=== PATIENT | female | born 1990 | race Caucasian/White ===

== ENCOUNTER 2025-03-09 12:45 | Emergency (ER) | payer OTHER, SELFPAY ==
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
[2025-03-09 13:28] VITALS: BP 108/75; PULSE 81; RESP 18; TEMP 36.5; O2SAT 99
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
[2025-03-09 14:27] LABS: Basophils Percent Auto 0.4 % (0.2-1.2); Eosinophils Absolute Auto 0.1 K/mm3 (0-0.3); Eosinophils Percent Auto 1.1 % (0-4.4); Hematocrit 39.2 % (37.0-47.0); Hemoglobin 12.9 g/dL (12.0-15.0); Immature Granulocyte Absolute 0.02 K/mm3 (0.00-0.031); Immature Granulocyte Percent A 0.2 % (0-0.5); Lymphocytes Absolute Auto 1.85 K/mm3 (0.9-3.2); Lymphocytes Percent Auto 21.7 % (18.3-44.2); Mean Corpuscular HGB Conc 32.9 g/dl (32-36); Mean Corpuscular Hemoglobin 29.9 pg (26-34); Mean Platelet Volume 11.7 fl (7.4-10.4); Monocytes Absolute Auto 0.5 K/mm3 (0.1-0.6); Neutrophils Percent Auto 70.6 % (45.5-73.1); Platelet Count Result 195 k/mm3 (150-375); Red Blood Count 4.31 M/mm3 (4.2-5.4); Red Cell Distribution Width 12.2 % (11.5-14.5); White Blood Count 8.5 K/mm3 (4.5-10.0)
[2025-03-09 14:41] LABS: INR 0.9; Prothrombin Time 12.6 Seconds (11.1-14.7)
[2025-03-09 14:42] LABS: Partial Thromboplastin Time 26.9 Seconds (22.3-36.8)
[2025-03-09 14:45] LABS: Alanine Aminotransferase 18 U/L (6-35); Albumin Level 4.4 g/dL (3.5-5.1); Alkaline Phosphatase 64 U/L (38-126); Anion Gap 8 mmol/L (4-12); Aspartate Amino Transferase 27 U/L (14-36); Bilirubin,Total 0.7 mg/dL (0.2-1.3); Blood Urea Nitrogen 15 mg/dL (7-17); Calcium 8.8 mg/dL (8.4-10.2); Carbon Dioxide 23 mmol/L (22-30); Chloride 106 mmol/L (98-107); Estimated CRCL calculation 79 ml/min; Estimated Glomerular Filt Rate > 60; Glucose 97 mg/dL (65-110); Potassium 3.7 mmol/L (3.4-5.0); Sodium 137 mmol/L (137-145)
[2025-03-09 15:12] LABS: BEDSIDEPREGUCG Negative (Negative)
[2025-03-09 15:17] LABS: Add Urine Microscopic? YES; Appearance Urine Cloudy (Clear); Bacteria Urine 1+ /hpf; Bilirubin Urine Negative (Negative); Blood Urine 2+ (Negative); Color Urine Yellow (Yellow); Glucose Urine UA Negative (Negative); Ketones Urine Trace mg/dL (Negative); Leukocyte Esterase Ur 2+ LEU/UL (Negative); Nitrate Urine Negative (Negative); Non Pathogenic Casts 0-2; Protein Urine Trace mg/dL (Negative); Squamous Epithelial Cell Urine Occasional /hpf (Few); Urobilinogen Urine 0.2 mg/dL (<2.0); WBC Urine 21-50 /hpf (0-3)
--- OUTSIDE RECORDS SUMMARY | 2025-03-09 16:27 | XMS_ITS | Clinical Summary ---
Author Organization [facility] Address [address] [place] [address] Care Team Providers Care Projector Booth Operator Name Role Phone Unavailable Primary Care Provider Unavailabl e Allergies No known active allergies Medications levonorgestreL (MIRENA) 20 mcg/24 hours (7 yrs) 52 mg IUD by Intrauterine route. Active fluconazole (DIFLUCAN) 150 mg tablet Take one tablet every third day for two doses. 2 Tablet 0 Active fluconazole (DIFLUCAN) 150 mg tablet Take one tablet now, repeat in 7 days. 2 Tablet 6 0 Active mirabegron (Myrbetriq) 50 mg Extended Release 24 hour tablet Take 1 Tablet (50 mg) by mouth daily. 30 Tablet 2 Active azithromycin (ZITHROMAX) 250 mg tablet TAKE 2 TABLETS (500 MG) BY ORAL ROUTE ONCE DAILY FOR 1 DAY THEN 1 TABLET (250 MG) BY ORAL ROUTE ONCE DAILY FOR 4 DAYS 4 Active cetirizine (ZyrTEC) 10 mg tablet Take 1 tablet every day by oral route as directed for 30 days. 4 Active Flonase Allergy Relief 50 mcg/actuation [place], Suspension nasal inhaler [place] 1 spray every day by intranasal route as directed for 30 days. 4 Active Vtama 1 % Cream Acti ve tolterodine (DETROL) 2 mg tablet Take 1 Tablet (2 mg) by mouth 2 times daily. 60 Tablet 3 5 Active Active Problems No known active problems Resolved Problems Problem Noted Date Diagnosed Date Resolved Date Encounter for induction of labor 08/07/2019 05/06/2020 GERD (gastroesophageal reflux disease) 07/14/2019 05/06/2020 Nausea/vomiting in 06/18/2019 05/06/2020 Anemia during in third trimester 06/18/2019 05/06/2020 Acute right-sided low back p ain without sciatica 05/06/2020 Encounters Date Type Department Care Team Description 03/08/2025 Results Follow-Up [facility] [address] [place] [address] Ambika Brian NP URINE CULTURE 03/05/2025 11:40 AM CDT Office Visit [facility] [address] [place] [phone] Ambika Brian NP OAB (overactive bladder) (Primary Dx); Pyuria 02/09/2025 External Device Data STL ABSTRACTION Provider, Abstract 01/16/2025 External Device Data STL ABSTRACTION Provider, Abstract 01/15/2025 External Device Data STL ABSTRACTION Provider, Abstract 01/13/2025 External Device Data STL ABSTRACTION Provider, Abstract 12/30/2024 External Device Data STL ABSTRACTION Provider, Abstract from Last 3 Months Immunizations Immunization Administration Dates Next Due (ADACEL/BOOSTRIX)(10 YR UP) TDAP VACCINE, 0.5ML, IM 05/21/2019 INFLUENZA VACCINE QUADRIVALENT 6 MOS UP PF IM Family History Medical History Relation Name Comments Healthy Brother 1 Ray charlton Healthy Brother 2 Parker charlton Healthy Brother 3 Elioblu charlton Hypertension Father Depression Mother Yun alderman Healthy Mother Yun alderman Endometriosis , Other Mother Yun alderman Endometriosis Colon Cancer Other MGGM Breast Cancer Neg Hx Ovarian Cancer Neg Hx Relation Name Status Comments Brother 1 Ray charlton Alive Brother 2 Parker charlton Alive Brother 3 Elioblu lopezs Alive Father Alive Mother Yun alderman Alive Other MGGM Alive Social History Tobacco Use Types Packs/Day Years Used Date Smoking Tobacco: Never Smokeless Tobacco: Never Tobacco Cessation:Counseling Given: Not Answered Alcohol Use Standard Drinks/Week Comments Not Currently 0 (1 standard drink = 0.6 oz pur e alcohol) socially Comments No Sex and Gender Information Value Date Recorded Sex Assigned at Not on file 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 Gender Identity Not on file Sexual Orientation Not on file Last Filed Vital Signs Vital Sign Reading Time Taken Comments Blood Pressure 108/69 02/12/2024 8:54 AM CDT Pulse 62 02/12/2024 8:54 AM CDT Temperature 36.7 C (98 F) 07/26/2022 7:59 AM CDT Respiratory Rate 18 08/09/2019 10:44 AM CDT Oxygen Saturation 98% 08/07/2019 5:00 PM CDT Inhaled Oxygen Concentration - - Weight 67.2 kg (148 lb 4 oz) 02/12/2024 8:54 AM CDT Height 162.6 cm (5' 4 ) 02/12/2024 8:54 AM CDT Body Mass Index 25.45 02/12/2024 8:54 AM CDT Plan of Treatment Upcoming Encounters Date Type Department Care Team (Late st Contact Info) Description 06/07/2025 8:40 AM CDT Office Visit [facility] [address] [facility] [place] [address] [place] [address] [facility] [address] [place] [address] Health Maintenance Due Date Last Done Comments HEPATITIS B VACCINES (1 of 3 - 19+ 3-dose series) 2011 INFLUENZA VACCINE (#1) 2024 08/23/2021, 2018 PAP SMEAR 02/11/2027 02/12/2024, 08/11, 04/22/2020, Additional history exists CERVICAL CANCER SCREENING 02/11/2029 HPV/Cotest (21-29) 02/11/2029 02/12/2024 HPV/Cotest (30-65) 02/11/2029 02/12/2024 DTAP/TDAP/TD VACCINES (2 - Td or Tdap) 05/21/2029 05/21/2019 HPV VACCINES Aged Out No longer eligi ble based on patient's age to complete this topic Procedures Procedure Name Priority Date/Time Associated Diagnosis Comments URINE CULTURE Routine 03/05/2025 1:33 PM CDT Pyuria POC URINALYSIS DIPSTICK AUTOMATED Routine 03/05/2025 11:54 AM CDT OAB (overactive bladder) CERV/VAG CYTO AGE BASED SCREEN PAP Routine 02/12/2024 9:56 AM CDT Well woman exam with routine gynecological exam Screening for cervical cancer Screening for human papillomavirus (HPV) from Last 3 Months or Most Recently Relevant to Health Maintenance Results * URINE CULTURE (03/05/2025 1:33 PM CDT) URINE CULTURE SEE NOTE [facility] Comment: CULTURE, URINE, ROUTINE Micro Number: [id number] Test Status: Final Specimen Source: Urine, clean catch Specimen Quality: Adequate Result: No Growth Test Performed at: [facility] [address] [address] [facility] Urine URINE SPECIMEN OBTAINED BY CLEAN CATCH PROCEDURE / Unknown 03/05/2025 1:33 PM CDT 03/06/2025 12:53 AM CDT Ambika Brian NP MICROBIOLOGY - GENERAL OR DERABLES Final Result [facility] [phone] [facility] [address] [id number] * (ABNORMAL) POC URINALYSIS DIPSTICK AUTOMATED (03/05/2025 11:54 AM CDT) COLOR UA POC Yellow Pale to Dark Yellow [facility] CLARITY UA POC Clear Clear, Other [facility] GLUCOSE UA POC Negative Negative, Normal [facility] BILIRUBIN UA POC Negative Negative [facility] KETONES UA POC Negative Negative [facility] SPECIFIC GRAVITY UA POC 1.025 1.000 - 1.030 [facility] BLOOD UA POC Negative Negative [facility] PH UA POC 6.0 5.0 - 8.0 [facility] PROTEIN UA POC Negative Negative [facility] UROBILINOGEN UA POC 0.2 <2.0 mg/dL [facility] NITRITE UA POC Negative Negative [facility] LEUKOCYTE ESTERASE UA POC 1+(A) Negative [facility] K[facility] LOT NUMBER POC [id number] [facility] KIT EXP DATE POC [phone] [facility] Urine 03/05/2025 11:5 4 AM CDT us Ambika Brian NP POINT OF CARE TESTING Fin al Result [facility] UROLOGY [facility] CLIA# [id number] [place] [address] * CERV/VAG CYTO AGE BASED SCREEN PAP (02/12/2024 9:56 AM CDT) COMMENT (PAP): [facility] Comment: This order for age-based cervical cancer and STI screening follows ACOG guidelines(PB 168, 140, IUE070). See individual assays for performing site location. CLINICAL INFORMATION [facility] Comment:None given LAST MENSTRUAL PERIOD [facility] Comment:NONE GIVEN PREV PAP: [facility] Comment:NONE GIVEN PREV BX: [facility] Comment:NONE GIVEN SOURCE [facility] Comment:Endocervix ADEQUACY: [facility] Comment: Satisfactory for evaluation. Endocervical/transformation zone component present. Age and/or menstrual status not provided PAP INTERP [facility] Comment: Cytology Results: Negative for intraepithelial lesion or malignancy. COMMENT (PAP TEST) [facility] [place] Comment: This Pap test has been evaluated with computer assisted technology. STITCH BURNISHER: Han[facility] Comment: YAZMIN, CT(ASCP) CT screening location: [place] [address] [address] EXPLANATORY NOTE [facility] Comment: EXPLANATORY NOTE: The Pap is a screening test for cervical cancer. It is not a diagnostic test and is subject to false negative and false positive results. It is most reliable when a satisfactory sample, regularly obtained, is submitted with relevant clinical findings and history, and when the Pap result is evaluated along with historic and current clinical information. HPV E6/E7 Not Detected Not Detected [facility] Comment: Methodology: Supervisor [employer]-Mediated Amplification This assay detects E6/E7 viral messenger RNA (mRNA) from 14 high-risk HPV types (16,18,31,33,35,39,45,51,52,56,58,59,66,68). Cervical sources are required for HPV testing. If a vaginal source from a patient who has had a total hysterectomy with removal of cervix was submitted, please contact the testing laboratory for alternative testing options. For additional information, please refer to http://education.ModiFace/faq/WHO958b5 (This link if provided for information/ educational purposes only.) Test Performed at: [email or web address] [address] [place] [address] Prabhakar TURNER Genital SWAB OF ENDOCERVIX / Unknown 02/12/2024 9:56 AM CDT 02/12/2024 10:14 PM CDT Luly Orr MD PATHOLOGY/CYTOLOGY [facility] Final Result [facility] [phone] [email or web address] [address] [place] [address] from Last 3 Months or Most Recently Relevant to Health Maintenance Insurance [email or web address] [facility] [id number] Advance Directives For more information, please contact: [phone] * Full Code (Latest Code Status on File) Date Activated Date Inactivated Comments 08/07/2019 7:52 PM 08/09/2019 4:53 PM * Full Code Date Activated Date Inactivated Comments 08/07/2019 12:35 AM 08/07/2019 7:52 PM
--- OUTSIDE RECORDS SUMMARY | 2025-03-09 16:27 | XMS_ITS | Encounter Summary ---
Author Organization [facility] Address [address] [place] [address] Care Team Providers Care Orthopedic Tech Name Role Phone Unavailable Primary Care Provider Unavailabl e Encounter Details Date Type Department Care Team (Late st Contact Info) Description 03/08/2025 Results Follow-Up [facility] [address] [facility] [address] [place] [address] [place] [address] [facility] [address] [place] [address] URINE CULTURE Social History Tobacco Use Types Packs/Day Years Used Date Smoking Tobacco: Never Smokeless Tobacco: Never Alcohol Use Standard Drinks/Week Comments Not Currently 0 (1 standard drink = 0.6 oz pur e alcohol) socially Comments No Sex and Gender Information Value Date Recorded Sex Assigned at Not on file 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
--- OUTSIDE RECORDS SUMMARY | 2025-03-09 16:28 | XMS_ITS | Data Portability ---
Author Organization [employer], Main Office Address [address] [place] [address] Assessment No assessment recorded. Plan of Treatment Reminders Order Date Submit Date Provider Last Modified By Organization Details Last Modified Time Details Appointments None recorded. Lab None recorded. Referral None recorded. Procedures None recorded. Surgeries None recorded. Imaging None recorded. Medication Orders Zithromax Z-Al 250 mg tablet 2023 024 [facility][id number], [address] [place], [address], 4 15:14:00 Zyrtec 10 mg tablet 2023 024 [facility][id number], [address] [place], [address], 4 15:13:59 Flonase Allergy Relief 50 mcg/actuat ion nasal spray,susp ension 2023 024 [facility] #[id number], [address] [place], [address], 4 15:13:58 Patient TargetsNo targets recorded. Patient InstructionsNo instructions recorded. Reason for Referral None Reported. Problems Name Problem SNOMED Code Status Onset Date Resolution Date Notes Provider Name and Address Organization Details Recorded Time Acute sinusitis 61080281 Active [address] [facility] [address], [place], [address] [facility] [employer] 4 15:04:23 Frontal sinus pain 453189088 Active 024 GREG Obando [address] [facility], [place], [address] , [facility] 4 11:24:26 Problem Notes None recorded. Medical Equipment None Reported. Allergies No known drug allergies Medications Name Sig Start Date Stop Date Status Note LastModified by Organization Details LastModified Time cmp budesonide 0.5mg capsule EMPTY 1 CAPSULE INTO IDS, ADD DISTILLED WATER AND SALINE PACKET, IRRIGATE ONCE DAILY active Not Available Not Available No t Available cetirizine 10 mg tablet TAKE 1 TABLET BY MOUTH EVERY DAY DIRECTED active Not Available Not Available No t Available azithromyci n 250 mg tablet TAKE 2 TABLETS BY MOUTH TODAY, THEN TAKE 1 TABLET DAILY FOR 4 DAYS DIRECTED active Not Available Not Available No t Available polymyxin B sulfate 10,000 unit-trimet hoprim 1 mg/mL eye drops INSTILL 1 DROP INTO AFFECTED EYE 4 TIMES A DAY 02/09 completed Not Available Not Available Not Available methylpredn isolone 4 mg tablets in a dose pack TAKE 1 TABLET BY MOUTH EVERY DAY DIRECTED FOR 6 DAYS active Not Available Not Available No t Available fluticasone propionate 50 mcg/actuati on nasal spray,suspe nsion SPRAY 1 SPRAY BY INTRANASA L ROUTE EVERY DAY DIRECTED FOR 30 DAYS active Not Available Not Available No t Available Otezla Starter 10 mg (4)-20 mg (4)-30 mg(47) tablets in a dose pack TAKE TABLETS BY MOUTH DIRECTED ON STARTER PACK. 02/09 completed Not Available Not Available Not Available Vtama 1 % topical cream active Not Available Not Available Not Available Vitals Date Recorded Body weight Body mass index (BMI) Body height Body temperature Heart rate Respiratory rate Oxygen saturation Oxygen saturation in Arterial blood by Pulse oximetry Pain severity - 0-10 verbal numeric rating [Score] - Reported Systolic blood pressure Diastolic blood pressure Provider Name and Address Organization Details Last Updated DateTime 4 65622.7 7 g 25.5 kg/m2 162.56 cm 97.4 [degF] 78 /min 20 /min 98 % 98 % 8 92 mm[Hg] 62 mm[Hg] Ira Oliver RN [facility] [employer] 4 14:56:05 Social History Question Answer Notes LastModified by Organization Details LastModified Time Tobacco Smoking Status Never Smoker Ira Oliver RN [facility], [place] - [place] [employer] [facility] 02/10/2024 14:57:11 Do You Have An Advance Directive? No Information not available 02/10/2024 What Is Your Level Of Alcohol Consumption? Occasional Information not available 02/10/2024 Is Blood Transfusion Acceptable In An Emergency? Yes Information not available 02/10/2024 What Is Your Level Of Caffeine Consumption? Occasional Coffee Information not available 02/10/2024 What Is Your Code Status? Full Code Information not available 02/10/2024 In The 14 Days Before Symptom Onset, Have You Had Close Contact With A Laboratory-conf irmed COVID-19 While That Case Was Ill? No Information not available 02/10/2024 In The 14 Days Before Symptom Onset, Have You Had Close Contact With A Person Who Is Under Investigation For COVID-19 While That Person Was Ill? No Information not available 02/10/2024 Are You Currently Employed? Yes Information not available 02/10/2024 What Type Of Diet Are You Following? REGULAR Information not available 02/10/2024 What Is The Highest Grade Or Level Of School You Have Completed Or The Highest Degree You Have Received? 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 Yes Moved In December Information not available 02/10/2024 Do You Use Insect Repellent Routinely? No Information not available 02/10/2024 Where Do You Live? SingleLevelHouse Information not available 02/10/2024 Do You Have A Medical Power Of Visual Specialist? No Information not available 02/10/2024 How Many Children Do You Have? 1 Information not available 02/10/2024 Do You Have Any Pets? Yes Information not available 02/10/2024 What Is Your Relationship Status? Information not available 02/10/2024 Do You Use Your Seat Belt Or Car Seat Routinely? Yes Information not available 02/10/2024 Do You Have Smoke And Carbon Monoxide Detectors In Your Home? Yes Information not available 02/10/2024 Are You Passively Exposed To Smoke? No Information not available 02/10/2024 Are There Any Smokers In Your House? No Information not available 02/10/2024 Do You Participate In Social Media? Yes Information not available 02/10/2024 Do You Feel Stressed (tense, Restless, Nervous, Or Anxious, Or Unable To Sleep At Night)? [id number] Information not available 02/10/2024 Do You Use Any Illicit Or Recreational Drugs? No Information not available 02/10/2024 Do You Use Sunscreen Routinely? No Information not available 02/10/2024 Have You Recently Traveled Abroad? No Information not available 02/10/2024 Sex: Unknown Functional Status Question Answer Note LastModified by Organization [employer] LastModified Time What is your exercise level? None Information not available 02/10/2024 Mental Status None recorded. Family History Relationship Description Onset Age of this Age Resolved Age Notes LastModified by Organization Details LastModified Time Maternal Grandmother Malignant tumor of colon Not available 2023 14:52:31 Maternal Grandmother Endometriosi s (clinical) Not available 11/2023 14:53:03 Mother Endometriosi s (clinical) Not available 11/2023 14:53:03 Medical History Condition Response OTHER # 1 Gynecological History Statement/Question Response How many live births 1 Date of Last Colonoscopy Most Recent Bone Density STIs/STDs N Date of Last Pap Smear Current Control Method N/A Most Recent Mammogram Breast Problems none Discharge none Obstetrics History GPAL:G 0 P 0 0 0 0 Past Encounters Encounter ID Performer Location Encounter Start Date Encounter Closed Date Diagnosis/Indication Diagnosis SNOMED-CT Code Diagnosis ICD10 Code Diagnosis Note [id number] GREG Obando [facility] [address] [address] 02/10/2024 14:45:18 02/10/2024 15:16:26 Acute sinusitis 01255978 J01.90 Add daily anti-hista mine Health Concerns Section Related Observation LastModified by Organization Detai ls LastModified Time None Recorded Concern Status LastModified by Organization Details LastModified Time None Recorded Advance Directives Directive N: Payers Encounter Date Sequence Insurance Name Policy Number Policy Saavedra Covered Member ID Saavedra Member ID Guarantor Name 02/10/2024 1 [facility] Michelle Hernandez [id number] Michelle Hernandez Notes Date Note Type Note Provider Name and Address Organization Details Recorded Time 02/10/2024 text/html Michelle Hernandez i s a 33 year old female here to establish care. [place] She has been sick since mid-December.She is having some sinus issues. This started in mid-December. She has constant pressure with some occasional stabs in the left frontal sinuses. She has a history of hypoglycemia. She is aware of when her sugar run low and tends to snack a lot Flu shot: declinesCOVID vaccines: 2020, 2020, 2020Tdap: up to date per patientWWE: 2021 per patient, OB Dr. Orr at [facility]. Yesenia Powers, VICE PRESIDENT OF BRAND MANAGEMENT [address] [facility], [place] [address], [place], [address], [facility] [employer] 02/10/2024 15:14:29 OBGyn Episode No OBEpisode recorded.
[2025-03-09 16:53] VITALS: BP 100/66; PULSE 73; RESP 15; TEMP 36.4; O2SAT 100
== END 2025-03-09 16:55 | disposition home or self-care (01) ==
PROVIDERS: Emergency Provider Emergency Medicine
DX: N39.0 Urinary tract infection, site not specified (principal); M54.50 Low back pain, unspecified; R10.30 Lower abdominal pain, unspecified; V43.62XA Car passenger injured in collision with other type car in traffic accident, initial encounter
CPT/HCPCS: 36415; 71260; 72129; 72132; 74177; 80053; 81001; 81025; 85025; 85610; 85730; 87086; 96365; 99284; J0696; Q9967